=== PATIENT | female | born 1955 | race African-American/Black ===

== ENCOUNTER 2021-08-12 05:36 | Emergency (ER) | payer OTHER ==
[2021-08-12 06:06] VITALS: BP 149/92; PULSE 74; BMI 20.5
[2021-08-12] MEDS ORDERED: ACETAMINOPHEN 325 MG TABLET (FP) PO ONE (06:06)
[2021-08-12] MEDS ORDERED: ACETAMINOPHEN 325 MG TABLET (FP) ONE (06:09)
[2021-08-12 06:20] VITALS: TEMP 98
[2021-08-12] MEDS ORDERED: IBUPROFEN 400 MG TABLET (FP) PO ONE ×2 (07:44→08:13)
== END 2021-08-12 09:53 | disposition home or self-care (01) ==
LOC: JER 05:36
DX: M25.569 Pain in unspecified knee (principal)
CPT/HCPCS: 73110-TC-LT-FY; 73110-TC-RT-FY; 73130-TC-LT-FY; 73130-TC-RT-FY; 73562-TC-LT-FY; 73562-TC-RT-FY; 93005; 93010; 99284-25